=== PATIENT | female | born 1970 | race Caucasian/White ===

== ENCOUNTER 2017-11-23 14:03 | Emergency (ER) | payer SELFPAY ==
[2017-11-23 14:25] VITALS: BP 168/101
--- NOTE | 2017-11-23 15:27 | UC ---
Kimberlee Singleton Elizabeth, scribed for Mihcael Ch MD on 11/23/17 at 1435 . Shortness of Breath HPI - HPI Summary HPI Summary: This patient is a 47 year old F presenting to [facility] with a chief complaint of shortness of breath since 6 days ago. The patient notes that her symptoms were initially only present at night but have been constant since 3 days ago The patient rates the pain 0/10 in severity. Symptoms aggravated by nothing. Symptoms alleviated by nothing. Patient reports headache, tingling down both arms, wheezing, occasional nonproductive cough. The patient denies hx of asthma or pulmonary embolism. Patient smokes 1 PPD. Denies chest pain, palpitations, fever, chills, or ankle swelling. The patient notes that she tried her sons albuterol but it did not alleviate her symptoms. The patient takes omeprazole for GERD. The patient notes that it does not feel like heartburn is worse. - History of Current Complaint Chief Complaint: UCRespiratory Stated Complaint: SOB Hx Obtained From: Patient Hx Last Menstrual Period: 1 MONTH AGO Onset/Duration: Gradual Onset, Lasting Days - 6 days, Still Present, Worse Since - today Timing: Constant Current Severity: Mild Dyspnea At: Rest Aggrevating Factors: Nothing Alleviating Factors: Nothing Associated Signs & Symptoms: Positive: Cough (Nonproductive), Wheezing, Other - positive headache, positive tingling down arms. Negative: Chest Pain w/Cough, Chest Pain Unrelated to Cough, Fever, Chills, Calf Pain/Swelling, Edema - Allergy/Home Medications Allergies/Adverse Reactions: Allergies Allergy/AdvReac Type Severity Reaction Status Date / Time No Known Allergies Allergy Verified 11/23/17 15:07 PMH/Surg Hx/FS Hx/Imm Hx Previously Healthy: Yes Other Respiratory History: negative asthma GI/ History: Gastroesophageal Reflux - Surgical History Surgical History: Yes Surgery Procedure, Year, and Place: 1970 UMBILICAL HERNIA [id number] bilat tubal ligation [facility] D&C X 3 [facility] R carpel tunnel repair - Family History Known Family History: Positive: Diabetes Negative: Cardiac Disease - Social History Alcohol Use: None Substance Use Type: Marijuana Substance Use Comment - Amount & Last Used: 2 hits /day Smoking Status (MU): Current Every Day Smoker Type: Cigarettes Amount Used/How Often: 1 ppd Length of Time of Smoking/Using Tobacco: 30 yrs Have You Smoked in the Last Year: Yes Review of Systems Constitutional: Negative - negative fever ENT: Negative - negative epistaxis Respiratory: Shortness Of Breath Neurological: Headache All Other Systems Reviewed And Are Negative: Yes Physical Exam - Summary Physical Exam Summary: General: well-appearing, no pain distress Skin: warm, color reflects adequate perfusion, dry Head: normal Eyes: EOMI, NORMA ENT: normal Neck: supple, nontender Respiratory: CTA, breath sounds present, no wheezing Cardiovascular: RRR Abdomen: soft, nontender Bowel: present Musculoskeletal: normal, strength/ROM intact, no edema Neurological: sensory/motor intact, A&O x3 Psychological: affect/mood appropriate Triage Information Reviewed: Yes Vital Signs: Initial Vital Signs Temp 98.3 F 11/23/17 14:20 Pulse 88 11/23/17 14:20 Resp 22 11/23/17 14:20 BP 168/101 11/23/17 14:20 Pulse Ox 98 11/23/17 14:20 Vital Signs Reviewed: Yes Diagnostics - EKG Cardiac Rate: NL - at 85 bpm Cardiac Rhythm: Sinus: Normal - NSR at [address] and no ectopy Ectopy: None ST Segment: Normal Shortness of Breath Dx - Course Course Of Treatment: DISCUSSED THE NEED FOR EVALUATION WITH LABS RESULTING TODAY AND RECOMMENDED EVALUATION NOW IN THE EMERGENCY DEPARTMENT. PATIENT DECLINED AMBULANCE TRANSPORT; HER FAMILY WILL DRIVE HER TO THE ED. - Differential Dx/Diagnosis Provider Diagnoses: shortness of breath Discharge - Sign-Out/Discharge Documenting (check all that apply): Discharge/Admit/Transfer - Discharge Plan Condition: Stable Disposition: HOME Discharge Disposition Comment: discharge home Patient Education Materials: Shortness of Breath (ED) Referrals: Katalina Palmer MD [Primary Care Provider] - Additional Instructions: GO DIRECTLY TO THE EMERGENCY DEPARTMENT FOR FURTHER EVALUATION OF YOUR SHORTNESS OF BREATH. - Billing Disposition and Condition Condition: STABLE Disposition: Home The documentation as recorded by the Kimberlee floyd Elizabeth accurately reflects the service I personally performed and the decisions made by me, Michael Ch MD.
== END 2017-11-23 14:41 | disposition home or self-care (01) ==
LOC: UCEAST 14:03
DX: R06.02 Shortness of breath (principal); R51 Headache; R06.2 Wheezing; F17.210 Nicotine dependence, cigarettes, uncomplicated
CPT/HCPCS: 93005; 99202; G0463

== ENCOUNTER 2017-11-23 15:02 | Emergency (ER) | payer SELFPAY ==
[2017-11-23 16:46] LABS: ABS Basophils 0.1 10^3/ul (0-0.2); ABS Eosinophils 0.1 10^3/ul (0-0.6); ABS Lymphocytes 3.7 10^3/ul (1.0-4.8); ABS Monocytes 0.8 10^3/ul (0-0.8); ABS Neutrophils 7.7 10^3/ul (1.5-7.7); ABS Nucleated RBC 0 10^3/ul; Eosinophil % 0.8 % (0-6); Hematocrit 43 % (35-47); Hemoglobin 14.7 g/dl (12.0-16.0); Lymphocyte % 29.6 % (25-47); Mean Corpuscular HGB Conc 35 g/dl (31-36); Mean Corpuscular Hemoglobin 32 pg (27-31); Mean Corpuscular Volume 94 fL (80-97); Nucleated Red Blood Cells % 0.1; Platelet Count 276 10^3/ul (150-450); Red Blood Count 4.55 10^6/ul (4.00-5.40); Red Cell Distribution Width 13 % (10.5-15); White Blood Count 12.4 10^3/ul (3.5-10.8)
--- NOTE | 2017-11-23 16:58 | RAD ---
INDICATION: Short of breath COMPARISON: April 20, 2016 TECHNIQUE: An AP portable view obtained at 1649 hours is submitted. FINDINGS: Bones/Soft Tissues: There are no acute bony findings. Cardiomediastinal: The cardiomediastinal silhouette is normal. Lungs: There are no infiltrates. Pleura: There are no pleural effusions. Other: None IMPRESSION: NO ACTIVE DISEASE.
[2017-11-23 17:12] LABS: EGFR Non-African American 65.7 (>60)
[2017-11-23] MEDS ORDERED: Albuterol HFA INHALER* 8 gm MDI INH ONE (17:26)
--- NOTE | 2017-11-23 17:57 | ED ---
Shortness of Breath - HPI Summary HPI Summary: Patient is a 47-year-old female with history of hypertension presenting to the ED with shortness of breath over the past 3 days. She is a heavy smoker. Denies any known history of asthma or COPD. She was [facility] over by [facility]. She states the past 3 days she has felt as though she cannot take a big deep breath of air. She denies any recent travel, calf tenderness or OCP use. She states she is otherwise healthy and is not immunocompromised. Denies any nausea, vomiting, cuts patient, diarrhea, headache, visual changes on the back pain or chest pain. While she has a history of hypertension, she has not been on medications that she has lost her health insurance over the past few years. Denies any fevers, sweats, chills. Denies any cough or dizziness. - History of Current Complaint Chief Complaint: EDShortnessOfBreath Time Seen by Provider: 11/23/17 16:11 Hx Obtained From: Patient Onset/Duration: Gradual Onset Timing: Constant Current Severity: Mild Dyspnea At: Rest Aggrevating Factors: Deep Breaths Associated Signs & Symptoms: Negative - Risk Factors Pulmonary Embolism: Negative Cardiac: Negative Pseudomonas: Negative Tuberculosis: Negative - Allergy/Home Medications Allergies/Adverse Reactions: Allergies Allergy/AdvReac Type Severity Reaction Status Date / Time No Known Allergies Allergy Verified 11/23/17 15:07 PMH/Surg Hx/FS Hx/Imm Hx Previously Healthy: Yes Endocrine/Hematology History: Denies: Hx Diabetes, Hx Thyroid Disease Cardiovascular History: Reports: Hx Hypertension - no insurance to pay for meds Denies: Hx Pacemaker/ICD Respiratory History: Reports: Other Respiratory Problems/Disorders - STATES SMOKES SOMETIMES DIFFICULTY BREATHING Denies: Hx Asthma, Hx Chronic Obstructive Pulmonary Disease (COPD) GI History: Reports: Hx Gastroesophageal Reflux Disease - NOT ON DAILY MEDS Denies: Hx Ulcer History: Reports: Hx Kidney Stones - LEFT, FOR ONE MONTH Musculoskeletal History: Reports: Hx Arthritis - NECK AND HANDS KNEES Sensory History: Denies: Hx Contacts or Glasses, Hx Hearing Aid Opthamlomology History: Denies: Hx Contacts or Glasses Psychiatric History: Reports: Hx Anxiety - OK CURENTLY W/O MEDS, Hx Depression, Hx Panic Disorder - Cancer History Hx Chemotherapy: No Hx Radiation Therapy: No - Surgical History Surgery Procedure, Year, and Place: 1969 UMBILICAL HERNIA [id number] bilat tubal ligation [facility] D&C X 3 [facility] R carpel tunnel repair Hx Anesthesia Reactions: No - Immunization History Hx Pertussis Vaccination: No Immunizations Up to Date: Unable to Obtain/Confirm Infectious Disease History: No Infectious Disease History: Denies: Hx Hepatitis, Hx Human Immunodeficiency Virus (HIV), Traveled Outside the [place] in Last 30 Days - Family History Known Family History: Positive: Diabetes Negative: Cardiac Disease - Social History Occupation: Employed Full-time Lives: With Family Alcohol Use: Occasionally Hx Substance Use: Yes Substance Use Type: Reports: Marijuana Substance Use Comment - Amount & Last Used: 2 hits /day Hx Tobacco Use: Yes Smoking Status (MU): Current Every Day Smoker Type: Cigarettes Amount Used/How Often: 1 ppd Length of Time of Smoking/Using Tobacco: 30 yrs Have You Smoked in the Last Year: Yes Review of Systems Constitutional: Negative Negative: Fever, Chills, Fatigue, Skin Diaphoresis Negative: Epistaxis, Dental Pain Negative: Palpitations, Chest Pain Positive: Shortness Of Breath. Negative: Cough Negative: Abdominal Pain, Vomiting, Diarrhea Negative: Arthralgia, Myalgia Negative: Headache, Weakness, Paresthesia, Numbness Psychological: Normal All Other Systems Reviewed And Are Negative: Yes Physical Exam Triage Information Reviewed: Yes Vital Signs On Initial Exam: Initial Vitals Temp Pulse Resp BP Pulse Ox 98.0 F 91 18 154/113 100 11/23/17 15:05 11/23/17 15:05 11/23/17 15:05 11/23/17 15:05 11/23/17 15:05 Vital Signs Reviewed: Yes Appearance: Positive: Well-Appearing, Well-Nourished Skin: Positive: Warm, Skin Color Reflects Adequate Perfusion Head/Face: Positive: Normal Head/Face Inspection Eyes: Positive: EOMI, NORMA, Conjunctiva Clear Neck: Positive: Supple, Nontender, No Lymphadenopathy Respiratory/Lung Sounds: Positive: Clear to Auscultation, Breath Sounds Present Cardiovascular: Positive: RRR, Pulses are Symmetrical in both Upper and Lower Extremities. Negative: Leg Edema Left, Leg Edema Right Musculoskeletal: Positive: Normal, Strength/ROM Intact Neurological: Positive: Speech Normal Psychiatric: Positive: Normal, Affect/Mood Appropriate AVPU Assessment: Alert Diagnostics - Vital Signs Vital Signs Temp Pulse Resp BP Pulse Ox 11/23/17 16:48 71 13 146/107 97 11/23/17 16:13 72 7 151/105 98 11/23/17 15:05 98.0 F 91 18 154/113 100 - Laboratory Lab Results: Lab Results 11/23/17 11/23/17 11/23/17 Range/Units 16:39 16:39 16:39 WBC 12.4 H (3.5-10.8) 10^3/ul RBC 4.55 (4.00-5.40) 10^6/ul Hgb 14.7 (12.0-16.0) g/dl Hct 43 (35-47) % MCV 94 (80-97) fL MCH 32 H (27-31) pg MCHC 35 (31-36) g/dl RDW 13 (10.5-15) % Plt Count 276 (150-450) 10^3/ul MPV 8.0 (7.4-10.4) um3 Neut % (Auto) 62.3 (38-83) % Lymph % (Auto) 29.6 (25-47) % [place] % (Auto) 6.7 (0-7) % Eos % (Auto) 0.8 (0-6) % Baso % (Auto) 0.6 (0-2) % Absolute Neuts (auto) 7.7 (1.5-7.7) 10^3/ul Absolute Lymphs (auto) 3.7 (1.0-4.8) 10^3/ul Absolute Monos (auto) 0.8 (0-0.8) 10^3/ul Absolute Eos (auto) 0.1 (0-0.6) 10^3/ul Absolute Basos (auto) 0.1 (0-0.2) 10^3/ul Absolute Nucleated RBC 0 10^3/ul Nucleated RBC % 0.1 D-Dimer, Quantitative (Less Than 230) ng/mL Sodium 139 (135-145) mmol/L Potassium 3.5 (3.5-5.0) mmol/L Chloride 104 (101-111) mmol/L Carbon Dioxide 25 (22-32) mmol/L Anion Gap 10 (2-11) mmol/L BUN 9 (6-24) mg/dL Creatinine 0.91 (0.51-0.95) mg/dL Est GFR ( Amer) 79.5 (>60) Est GFR (Non-Af Amer) 65.7 (>60) BUN/Creatinine Ratio 9.9 (8-20) Glucose 89 (70-100) mg/dL Lactic Acid 0.8 (0.5-2.0) mmol/L Calcium 9.5 (8.6-10.3) mg/dL Total Bilirubin 0.80 (0.2-1.0) mg/dL AST 15 (13-39) U/L ALT 12 (7-52) U/L Alkaline Phosphatase 76 (34-104) U/L Troponin I 0.00 (<0.04) ng/mL C-Reactive Protein 8.79 H (<8.01) mg/L Total Protein 7.3 (6.4-8.9) g/dL Albumin 4.2 (3.2-5.2) g/dL Globulin 3.1 (2-4) g/dL Albumin/Globulin Ratio 1.4 (1-3) Beta HCG, Quant 1.72 mIU/mL 11/23/17 Range/Units 16:39 WBC (3.5-10.8) 10^3/ul RBC (4.00-5.40) 10^6/ul Hgb (12.0-16.0) g/dl Hct (35-47) % MCV (80-97) fL MCH (27-31) pg MCHC (31-36) g/dl RDW (10.5-15) % Plt Count (150-450) 10^3/ul MPV (7.4-10.4) um3 Neut % (Auto) (38-83) % Lymph % (Auto) (25-47) % [place] % (Auto) (0-7) % Eos % (Auto) (0-6) % Baso % (Auto) (0-2) % Absolute Neuts (auto) (1.5-7.7) 10^3/ul Absolute Lymphs (auto) (1.0-4.8) 10^3/ul Absolute Monos (auto) (0-0.8) 10^3/ul Absolute Eos (auto) (0-0.6) 10^3/ul Absolute Basos (auto) (0-0.2) 10^3/ul Absolute Nucleated RBC 10^3/ul Nucleated RBC % D-Dimer, Quantitative < 200 (Less Than 230) ng/mL Sodium (135-145) mmol/L Potassium (3.5-5.0) mmol/L Chloride (101-111) mmol/L Carbon Dioxide (22-32) mmol/L Anion Gap (2-11) mmol/L BUN (6-24) mg/dL Creatinine (0.51-0.95) mg/dL Est GFR ( Amer) (>60) Est GFR (Non-Af Amer) (>60) BUN/Creatinine Ratio (8-20) Glucose (70-100) mg/dL Lactic Acid (0.5-2.0) mmol/L Calcium (8.6-10.3) mg/dL Total Bilirubin (0.2-1.0) mg/dL AST (13-39) U/L ALT (7-52) U/L Alkaline Phosphatase (34-104) U/L Troponin I (<0.04) ng/mL C-Reactive Protein (<8.01) mg/L Total Protein (6.4-8.9) g/dL Albumin (3.2-5.2) g/dL Globulin (2-4) g/dL Albumin/Globulin Ratio (1-3) Beta HCG, Quant mIU/mL Result Diagrams: 11/23/17 16:39 11/23/17 16:39 Lab Statement: Any lab studies that have been ordered have been reviewed, and results considered in the medical decision making process. Course/Dx - Course Course Of Treatment: During the course treatment, the patient is evaluated for shortness of breath feeling as though she cannot take a big deep inhale. D- dimer obtained due to smoking history and this is <200. Other labs obtained and are unremarkable. She has remained on the cardiopulmonary monitor during her stay. She remains at 98% to 99% on room air and vital signs otherwise remained stable. Troponin 0.00. CRP only slightly elevated at 8. PERC score 0. Ibuprofen 600mg three times daily and albuterol inhaler encouraged. She is okay with this plan discharge at this time. - Diagnoses Differential Diagnosis/HQI/PQRI: Positive: Chest Wall Pain, Pneumonia Provider Diagnoses: Shortness of breath Discharge - Sign-Out/Discharge Documenting (check all that apply): Discharge/Admit/Transfer - Discharge Plan Condition: Stable Disposition: HOME Patient Education Materials: Shortness of Breath (ED) Referrals: Katalina Palmer MD [Primary Care Provider] - Additional Instructions: Ibuprofen 600mg three times daily Albuterol inhaler as needed for shortness of breath - Billing Disposition and Condition Condition: STABLE Disposition: Home
[2017-11-23 18:29] VITALS: BP 163/100
== END 2017-11-23 18:28 | disposition home or self-care (01) ==
LOC: ED 15:02
DX: R06.02 Shortness of breath (principal); I10 Essential (primary) hypertension; F17.210 Nicotine dependence, cigarettes, uncomplicated
CPT/HCPCS: 36415; 71045; 80053; 83605; 84484; 84702; 85025; 85379; 86140; 93005; 99283; A9270-GY